=== PATIENT | female | born 1955 | race Caucasian/White ===

== ENCOUNTER 2020-10-07 14:41 | Outpatient (CLI) | payer OTHER, SELFPAY ==
--- NOTE | ~2020-10-07 | MM_ITS ---
EXAMINATION: MM screening [facility] BI w julio césar HISTORY: Screening TECHNIQUE: Craniocaudal and mediolateral oblique 3-D tomosynthesis images were obtained and synthetic 2-D images were generated. CAD analysis was submitted and interpreted. COMPARISON: Comparison to multiple prior studies sequentially, with oldest reviewed study dated 10/2010. BREAST PARENCHYMAL COMPOSITION: There are scattered areas of fibroglandular density. FINDINGS: There is no evidence of suspicious mass, calcification, or architectural distortion to sugg est malignancy in either breast. There has been no suspicious interval change. IMPRESSION: 1. No mammographic evidence of malignancy. 2. Recommend routine screening mammography in one year. BI-RADS Category 1: Negative Reviewed, dictated and finalized at location A.
--- NOTE | ~2020-10-07 | DEXA_ITS ---
Bone Density Report Name: Josselin Marsh Age: 65 Sex: Female Ethnicity: White Date of : 1955 Indication: postmenopausal; Referring Provider: Willi Bo Study: Bone densitometry was performed. Exam Date: October 08, 2020 Accession number: [id number] Bone Density: Region BMD T-score Z-score Classification AP Spine (L1-L4) 1.032 -0.1 1.5 Normal Femoral Neck (Left) 0.717 -1.2 0.3 Osteopenia Total Hip (Left) 0.928 -0.1 1.0 Normal Total Hip Bilateral Avg 0.941 0.0 1.1 Normal Femoral Neck (Right) 0.728 -1.1 0.4 Osteopenia Total Hip (Right) 0.953 0.1 1.2 Normal World Health Organization criteria for BMD impression classify patients as: Normal (T-score at or above -1.0), Osteopenia (T-score between -1.0 and -2.5), or Osteoporosis (T-score at or below -2.5). 10-year Fracture Risk(1): Major Osteoporotic Fracture 8.1% Hip Fracture 0.6% Reported Risk Factors: [place] (), Neck BMD=0.717, BMI=26.6 (1) FRAX(R) Version 3.08. Fracture probability calculated for an untreated patient. Fracture probability may be lower if the patient has received treatment. Clinical Information Provided by Patient: Has used the following medications: Vitamin D, Calcium Patient maximum height was 65 Menopause Age: 52 Drinks caffeinated beverages Onset of menses at age 14 Number of children 1 Impression: The patient has low bone mass, based on the Left Femoral Neck T-score. The patient has an estimated ten-year risk of hip fracture of 0.6% and an estimated ten-year risk of major fracture of 8.1%, based on the WHO FRAX algorithm. Discussion: BONE DENSITY IS LOW AT ONE OR MORE SKELETAL SITES. This patient's lowest T-score is low at one or more skeletal sites. It meets the World Health Organization's (WHO) criteria for ?low bone mass? (T-score between -1.0 and -2.5). The patient's 10-year risk of fracture as calculated by FRAX is less than the threshold where pharmacological therapy is recommended by the National Osteoporosis Foundation (NOF). However, all treatment decisions require clinical judgment and consideration of individual patient factors, including patient preferences, comorbidities, previous drug use, risk factors not captured in the FRAX model (e.g., frailty, falls, vitamin D deficiency, increased bone turnover, interval significant decline in bone density) and possible under or overestimation of fracture risk by FRAX. The patient should follow a healthful lifestyle (good nutrition with adequate calcium and vitamin D, and appropriate weight-bearing exercise). Follow-Up: Consider repeating this study in 2 to 3 years to reassess this patient's status, or sooner if there is some new clinical indication. Reported by: MARGARET on 10/08/2020 10:52:00 AM. Re
== END 2020-10-07 14:42 | disposition home or self-care (01) ==
LOC: ANHIMG 14:44
PROVIDERS: PCP Family Medicine; Visit Provider Physician Assistant
DX: Z12.31 Encounter for screening mammogram for malignant neoplasm of breast (principal); Z78.0 Asymptomatic menopausal state; M85.89 Other specified disorders of bone density and structure, multiple sites
CPT/HCPCS: 77063; 77067; 77080

== ENCOUNTER 2020-11-28 13:00 | Emergency (ER) | payer OTHER, SELFPAY ==
--- NOTE | ~2020-11-28 | XR_ITS ---
EXAMINATION: [id number] EXAM DATE: 11/28/2020 13:26 INDICATION: Left ribs pain. No known recent injury. TECHNIQUE: Frontal projection of the upper left ribs, frontal projection of the lower left ribs, obli que projection of the left ribs, frontal chest x-ray(s) for interpretation. There is no prior study for comparison. FINDINGS: There is acute closed posttraumatic left 9th rib fracture posteriorly. There is no soft ti ssue abnormality seen. No confluent consolidation, pneumothorax or pleural effusion suspected. Cardio mediastinal silhouette is normal. IMPRESSION: Left 9th rib fracture posteriorly. Reviewed, dictated and finalized at location A.
--- NOTE | 2020-11-28 13:04 | ED.BACK ---
HPI - Back Pain/Injury General Chief Complaint: Back Pain/Injury Stated Complaint: back pain radiating to abdomen Time Seen by Provider: 11/28/20 13:04 Source: patient and RN notes reviewed History of Present Illness HPI Narrative: Patient is 65-year-old female who presents the urgent care with complaints of upper left back pain that radiates to the abdomen. Patient states that she has surges of sharp pains intermittently. States that she does not have abdomen pain at this time but has had some radiation in the last 2 to 3 days when the pain started. Patient states that pain exacerbates with moving or bending. Patient has been taking meloxicam and [id number]-otlvcah pain medications without much improvement. Denies of any known trauma, injury or any recent strenuous activity. States that she does have some discomfort with deep breathing but denies of any shortness of breath. No other acute complaints. No acute distress noted. Patient read the plan of care. Some parts of this dictation were generated by voice recognition software and may contain typographical and/or grammatical inaccuracies. Related Data Home Medications Medication Instructions Recorded Confirmed calcium carbonate-vitamin D3 1 tablet PO DAILY 11/28/20 11/28/20 [Caltrate 600 plus D] vitamin B complex [B 1 tablet PO DAILY 11/28/20 11/28/20 Complex-Vitamin B12] Allergies Allergy/AdvReac Type Severity Reaction Status Date / Time No Known Allergies Allergy Verified 11/28/20 13:17 Review of Systems Review of Systems: CONSTITUTIONAL: Denies fever, chills, or sweats. EYES: Denies visual changes, redness, or discharge. ENT: Denies rhinorrhea, congestion, sore throat, or otalgia. CARDIOVASCULAR: Denies chest pain, palpitations, or edema. RESPIRATORY: Denies cough or dyspnea. GASTROINTESTINAL: Denies abdominal pain, nausea, vomiting, or diarrhea. GENITOURINARY: Denies dysuria or hematuria. SKIN: Denies rash or itching. MUSCULOSKELETAL: Reports of upper left back pain NEUROLOGIC: Denies headache, numbness, or weakness. All other systems reviewed are negative, except as documented in HPI. [facility] Past Medical History Medical History delivery delivered Endometriosis Surgical History Surgical History History of tonsillectomy Family History Family History Grandparent Diabetes mellitus Family history of cardiovascular disease Acute myocardial infarction Family history of coronary artery disease Mother Family history of blood dyscrasia Family history of malignant neoplasm Father Hypertension Social History Social History Smoking status: Former smoker (Quit 1983) Second hand tobacco smoke exposure: No Smoking end date: 03/22/83 Alcohol intake: current Drinks per week: 15 Substance use: never Substance use type: does not use Gender identity (if verbalized by the patient): Female Sexual Orientation (if Verbalized by the Patient): Straight or Heterosexual Spiritual care concerns: No Agree to blood products: Yes Comments At the time of my signature, I reviewed and agree with the nursing past medical, surgical, social, and family history. There is no relevant family history pertinent to the patient complaint. Exam Narrative: GENERAL: This is a well-nourished, well-developed patient, in no apparent distress. HEAD: normocephalic, atraumatic. EYES: PERRL. Sclera clear/white. Vision is grossly intact. EARS: External ears normal NOSE: External nose normal with no obvious nasal discharge, nares without redness, no rhinorrhea. THROAT: Mucous membranes moist NECK: Neck supple CARDIOVASCULAR: Regular rate and rhythm without murmurs, gallops, or rubs. RESPIRATORY: Clear to auscultation. Breath
[2020-11-28 13:06] VITALS: BP 168/78; PULSE 82; RESP 16; TEMP 36.8; O2SAT 100
== END 2020-11-28 13:47 | disposition home or self-care (01) ==
PROVIDERS: Emergency Provider Nurse Practitioner Family; PCP Physician Assistant
DX: S22.32XA Fracture of one rib, left side, initial encounter for closed fracture (principal); X58.XXXA Exposure to other specified factors, initial encounter; Z87.891 Personal history of nicotine dependence; N80.9 Endometriosis, unspecified
CPT/HCPCS: 71101; 99213; G0463

== ENCOUNTER 2021-03-02 10:38 | Emergency (ER) | payer OTHER, SELFPAY ==
--- NOTE | 2021-03-02 10:48 | ED.URI ---
HPI - URI/Sore Throat General Chief Complaint: Upper Respiratory Infection Stated Complaint: ears clogged,escobar,cough Time Seen by Provider: 03/02/21 10:48 Source: patient Mode of arrival: ambulatory Limitations: no limitations History of Present Illness HPI Narrative: Josselin Marsh is a 66 yo female with hypothyroid, GERD, depression, who comes with stuffiness and ear pressure eye pressure since ; she is afebrile. No nausea vomiting or diarrhea. Related Data Home Medications Medication Instructions Recorded Confirmed calcium carbonate-vitamin D3 1 tablet PO DAILY 11/28/20 11/28/20 [Caltrate 600 plus D] vitamin B complex [B 1 tablet PO DAILY 11/28/20 11/28/20 Complex-Vitamin B12] Allergies Allergy/AdvReac Type Severity Reaction Status Date / Time No Known Allergies Allergy Verified 11/28/20 13:17 Review of Systems Review of Systems: CONSTITUTIONAL: Denies fever, chills, sweats. EYES: Denies visual changes, redness, discharge. ENT: Has rhinorrhea, has congestion, sore throat, otalgia. CARDIOVASCULAR: Denies chest pain, palpitations, edema. RESPIRATORY: Denies dyspnea, wheezing, has deep cough GASTROINTESTINAL: Denies abdominal pain, nausea, vomiting, diarrhea. GENITOURINARY: Denies dysuria, hematuria, abnormal discharge SKIN: Denies rash or itching. NEUROLOGIC: Denies numbness, or focal weakness. PSYCHIATRIC: Denies anxiety or depression. [facility] Past Medical History Medical History delivery delivered Endometriosis Surgical History Surgical History History of tonsillectomy Family History Family History Grandparent Diabetes mellitus Family history of cardiovascular disease Acute myocardial infarction Family history of coronary artery disease Mother Family history of blood dyscrasia Family history of malignant neoplasm Father Hypertension Social History Social History Smoking status: Former smoker (Quit 1983) Second hand tobacco smoke exposure: No Smoking end date: 03/22/83 Alcohol intake: current Drinks per week: 15 Substance use: never Substance use type: does not use Gender identity (if verbalized by the patient): Female Sexual Orientation (if Verbalized by the Patient): Straight or Heterosexual Spiritual care concerns: No Agree to blood products: Yes Comments At time of signature, I agree with nursing past medical, surgical, social and family history. There is no relevant family history pertinent to the presenting complaint. Exam Narrative: GENERAL: This is a well-nourished, well-developed patient, in mild distress. HEAD: normocephalic, atraumatic. EYES: P Sclera clear/white. Vision is grossly intact. EARS: External ears normal, auditory canals clear and without drainage, TMs normal without perforation. Hearing grossly intact. NOSE: External nose normal with nasal discharge, nares with redness, has rhinorrhea. THROAT: Mucous membranes moist, posterior pharynx mild erythema NECK: Neck supple, non-tender CARDIOVASCULAR: Regular rate and rhythm without murmurs, gallops, or rubs. RESPIRATORY: Clear to auscultation. Breath sounds equal bilaterally. No wheezes, rales, or rhonchi. Raspy cough on exam GASTROINTESTINAL: Abdomen soft, non-tender, SKIN: warm, intact with no suspicious lesions or rash, good texture and turgor. NEURO: awake, alert, and oriented to person, place and time. There were no obvious focal neurologic abnormalities. Steady gait EXTREMITIES: Normal range of motion. BACK: Nontender without deformity Course Course Emergency Course: Patient here with sinus congestion ears feeling stuffy and cough particularly that worsens at night x3 days Started on prednisone, Tessalon Perles, codeine cough syrup at night Vi
[2021-03-02 10:52] VITALS: BP 139/82; PULSE 90; RESP 16; TEMP 36.8; O2SAT 98
== END 2021-03-02 11:16 | disposition home or self-care (01) ==
PROVIDERS: Emergency Provider Nurse Practitioner; PCP Family Medicine
DX: R05.9 Cough, unspecified (principal); J06.9 Acute upper respiratory infection, unspecified; Z87.891 Personal history of nicotine dependence; N80.9 Endometriosis, unspecified
CPT/HCPCS: 99213; G0463

== ENCOUNTER 2021-03-13 10:18 | Emergency (ER) | payer OTHER, SELFPAY ==
[2021-03-13 10:41] VITALS: BP 131/80; PULSE 85; RESP 16; TEMP 36.4; O2SAT 100
--- NOTE | 2021-03-13 11:22 | ED.URI ---
HPI - URI/Sore Throat General Chief Complaint: Upper Respiratory Infection Stated Complaint: Congestion,Cough Time Seen by Provider: 03/13/21 11:05 Source: patient, RN notes reviewed and old records reviewed Mode of arrival: ambulatory Limitations: no limitations History of Present Illness HPI Narrative: 66-year-old female who presents to [facility] with complaints of cough and congestion,yellow sinus drainage since the 9th of this Month. She was seen on the and was given prednisone. cough syrup. and Tessalon Perles with no improvement in her condition. Patient states low-grade temperatures but denies any chills or sweats and denies any body aches has had Covid and flu vaccinations MD elicited complaint: cough, rhinorrhea and nasal congestion Related Data Home Medications Medication Instructions Recorded Confirmed calcium carbonate-vitamin D3 1 tablet PO DAILY 11/28/20 03/13/21 [Caltrate 600 plus D] vitamin B complex [B 1 tablet PO DAILY 11/28/20 03/13/21 Complex-Vitamin B12] Allergies Allergy/AdvReac Type Severity Reaction Status Date / Time No Known Allergies Allergy Verified 03/13/21 10:57 Review of Systems Review of Systems: CONSTITUTIONAL: Low grade fever, nochills, or sweats. EYES: Denies visual changes, redness, or discharge. ENT: Positive yellow rhinorrhea, congestion, sinus pressure,sore throat, or otalgia. CARDIOVASCULAR: Denies chest pain, palpitations, or edema. RESPIRATORY: Positive cough no dyspnea. GASTROINTESTINAL: Denies abdominal pain, nausea, vomiting, or diarrhea. GENITOURINARY: Denies dysuria or hematuria. SKIN: Denies rash or itching. MUSCULOSKELETAL: Denies back pain, joint pain, no body aches NEUROLOGIC: Positive headache, no numbness, or weakness. PSYCHIATRIC: Positive history of anxiety or depression. All systems reviewed & are unremarkable except as noted in HPI and below [facility] Past Medical History Medical History (Updated 03/16/21 @ 19:48 by Vielka Hermosillo NP) delivery delivered Endometriosis GERD (gastroesophageal reflux disease) History of sinus problem Hypothyroidism (acquired) Surgical History Surgical History (Updated 03/16/21 @ 19:49 by Vielka Hermosillo NP) H/O cardiac radiofrequency ablation History of tonsillectomy Family History Family History Grandparent Diabetes mellitus Family history of cardiovascular disease Acute myocardial infarction Family history of coronary artery disease Mother Family history of blood dyscrasia Family history of malignant neoplasm Father Hypertension Social History Social History Smoking status: Former smoker (Quit 1983) Second hand tobacco smoke exposure: No Smoking end date: 03/22/83 Alcohol intake: current Drinks per week: 15 Substance use: never Substance use type: does not use Gender identity (if verbalized by the patient): Female Sexual Orientation (if Verbalized by the Patient): Straight or Heterosexual Spiritual care concerns: No Agree to blood products: Yes Comments At time of signature, agree with nursing past medical, surgical, social and family history. There is no relevant family history pertinent to the presenting complaint Exam Narrative: GENERAL: Well-appearing, well-nourished, and in no acute distress. HEAD: Normocephalic, atraumatic. EYES: PERRLA and EOMI. ENT: Nares red with yellow rhinorrhea no epistaxis. Mucous membranes moist.TM's normal with good light reflex, throat red with no lesions or exudates, post nasal drainage noted. NECK: Supple.no lymphadenopathy CHEST: Clear to auscultation. No respiratory distress.cough which is productive, SAO2 100% on room air HEART: Regular rate and rhythm. No murmur heard. Normal peripheral pulses. ABDOMEN: Soft, nontender, nondistended, normal active bowel sounds. EXTREMITIES: Normal range of motion. No edema
== END 2021-03-13 11:43 | disposition home or self-care (01) ==
PROVIDERS: Emergency Provider Registered Nurse; PCP Family Medicine
DX: J01.90 Acute sinusitis, unspecified (principal); B96.89 Other specified bacterial agents as the cause of diseases classified elsewhere; E03.9 Hypothyroidism, unspecified; Z87.891 Personal history of nicotine dependence; Z20.822 Contact with and (suspected) exposure to COVID-19
CPT/HCPCS: 87426; 99213; C9803; G0463

== ENCOUNTER 2021-03-24 11:27 | Outpatient (CLI) | payer OTHER, SELFPAY ==
--- NOTE | ~2021-03-24 | XR_ITS ---
XR ankle RT min 3V DATE: 03/24/2021 11:46 INDICATION: Injury, pain TECHNIQUE: 4 views COMPARISON: None FINDINGS: There is a minimally displaced transverse linear fracture near the tip of the lateral malle olus with overlying soft tissue swelling. The medial malleolus and posterior malleolus are intact. The ankle mortise appears maintained. Mild plantar calcaneal enthesopathy. IMPRESSION: Minimally displaced transverse recent fracture of the lateral malleolus, with overlying s oft tissue swelling Reviewed, dictated and finalized at location A. [employer] IMPRESSION: Minimally displaced transverse recent fracture of the lateral malle olus, with overlying soft tissue swelling
== END 2021-03-24 11:28 | disposition home or self-care (01) ==
LOC: ANHIMG 11:33
PROVIDERS: PCP Family Medicine; Visit Provider Physician Assistant
DX: S82.61XA Displaced fracture of lateral malleolus of right fibula, initial encounter for closed fracture (principal); M79.89 Other specified soft tissue disorders
CPT/HCPCS: 73610

== ENCOUNTER 2022-01-26 09:33 | Outpatient (CLI) | payer OTHER, SELFPAY ==
--- NOTE | ~2022-01-26 | MM_ITS ---
EXAMINATION: MM screening [facility] BI w julio césar HISTORY: Screening mammogram TECHNIQUE: Craniocaudal and mediolateral oblique 3-D tomosynthesis images were obtained and synthetic 2-D images were generated. CAD analysis was submitted and interpreted. COMPARISON: 10/07/2020, 07/04/2018 bilateral screening mammogram examinations BREAST PARENCHYMAL COMPOSITION: There are scattered areas of fibroglandular density. FINDINGS: There are arterial calcifications. There is no evidence of suspicious mass, calcification, or architectural distortion to suggest malignancy in either breast. There has been no suspicious inte rval change. IMPRESSION: 1. No mammographic evidence of malignancy. 2. Recommend routine screening mammography in one year. BI-RADS Category 1: Negative Reviewed, dictated and finalized at location A. [employer]
== END 2022-01-26 09:34 | disposition home or self-care (01) ==
LOC: ANHIMG 09:35
PROVIDERS: PCP Family Medicine; Visit Provider Physician Assistant Medical
DX: Z12.31 Encounter for screening mammogram for malignant neoplasm of breast (principal)
CPT/HCPCS: 77063; 77067

== ENCOUNTER 2022-12-04 11:03 | Emergency (ER) | payer MEDICARE, SELFPAY ==
[2022-12-04 11:16] VITALS: BP 134/80; PULSE 88; RESP 16; TEMP 36.8; O2SAT 96
--- NOTE | 2022-12-04 11:24 | ED.URI ---
HPI - URI/Sore Throat General Chief Complaint: Upper Respiratory Infection Stated Complaint: COUGH/SINUS CONGESTION Time Seen by Provider: 12/04/22 11:25 Source: patient, RN notes reviewed and old records reviewed Mode of arrival: ambulatory Limitations: no limitations History of Present Illness HPI Narrative: 67-year-old female who presents to [facility] with complaints of cough which is productive at times that is worse at night and sinus congestion, drainage facial pressure and some frontal headache discomfort of at least 1 week duration. Patient reports that she has been taking some severe cold and flu medication and some codeine cough syrup she had left over for her symptoms. Patient reports that she has seasonal sinus problems and history of past bronchitis. Patient reports that she has not had any known fevers but has noted some hot flashes at times. Patient denies any body aches, nausea or vomiting or diarrhea. MD elicited complaint: cough, rhinorrhea, nasal congestion and sinus pain Pertinent past history: sinusitis, seasonal allergies and other (bronchitis) Onset (ago): week(s) (1) Severity: moderate Treatments prior to arrival: cold medicine and other (codeine cough syrup) Related Data Home Medications Medication Instructions Recorded Confirmed calcium carbonate 600 mg-vitamin 1 tablet PO DAILY 11/28/20 12/04/22 D3 20 mcg (800 unit) chewable tablet (Caltrate 600 plus D) vitamin B complex (B 1 tablet PO DAILY 11/28/20 12/04/22 Complex-Vitamin B12 tablet) Bifidobacterium infantis 10.5 mg mg PO DAILY 03/25/21 09/30/22 (10 million cell) chewable tablet (Align) Allergies Allergy/AdvReac Type Severity Reaction Status Date / Time No Known Allergies Allergy Verified 12/04/22 11:11 Review of Systems Review of Systems: CONSTITUTIONAL: Reports malaise,no chills,some hot flashes, no known fevers. EYES: Denies visual changes, redness, or discharge. ENT: Reports rhinorrhea, congestion, sinus pain,no otalgia and no sore throat. CARDIOVASCULAR: Denies chest pain, palpitations, or edema. RESPIRATORY: Reports productive cough.? Denies dyspnea.Reports cough worse at night GASTROINTESTINAL: Denies abdominal pain, nausea, vomiting, diarrhea SKIN: Denies rash or itching. MUSCULOSKELETAL: Denies myalgia. NEUROLOGIC: Frontal headache. All systems reviewed & are unremarkable except as noted in HPI and below PMFSH Past Medical History Medical History (Updated 12/06/22 @ 19:56 by Vielka Hermosillo NP) Arthritis delivery delivered Claustrophobia Depression Endometriosis Fracture of distal end of right fibula GERD (gastroesophageal reflux disease) History of sinus problem Hypothyroidism Hypothyroidism (acquired) Nausea & vomiting Wears glasses Surgical History Surgical History (Updated 12/06/22 @ 19:56 by Vielka Hermosillo NP) H/O cardiac radiofrequency ablation H/O: section History of tonsillectomy Family History Family History Grandparent Diabetes mellitus Family history of cardiovascular disease Acute myocardial infarction Family history of coronary artery disease Mother Family history of blood dyscrasia Family history of malignant neoplasm Father Hypertension Carcinoma of colon Esophagus cancer Other Arthritis Kidney disorder Myelodysplastic syndrome Social History Social History Smoking packs per day: 2 Smoking cigarettes per day: 40.0 Years smoked: 6 Smoking pack-years: 12.00 Smoking status: Former smoker Second hand tobacco smoke exposure: No Smoking end date: 03/22/83 Alcohol intake: current Drinks per week: 15 Substance use: never Substance use type: does not use Lack of Transportation: No Lack of Food: Never True Current Housing: I Have Housing Concerned About Future Housing:
== END 2022-12-04 12:09 | disposition home or self-care (01) ==
PROVIDERS: Emergency Provider Registered Nurse; PCP Physician Assistant Medical
DX: J01.40 Acute pansinusitis, unspecified (principal); R05.1 Acute cough; E03.9 Hypothyroidism, unspecified; Z87.891 Personal history of nicotine dependence
CPT/HCPCS: 99213; G0463

== ENCOUNTER 2023-07-12 10:11 | Outpatient (CLI) | payer MEDICARE, SELFPAY ==
--- NOTE | ~2023-07-12 | MM_ITS ---
EXAMINATION: MM screening [facility] BI w julio césar HISTORY: Screening mammogram TECHNIQUE: Craniocaudal and mediolateral oblique 3-D tomosynthesis images were obtained and synthetic 2-D images were generated. CAD analysis was submitted and interpreted. COMPARISON: 01/26/2022, 10/07/2020 bilateral screening mammogram examinations BREAST PARENCHYMAL COMPOSITION: The breasts are heterogeneously dense, which may obscure small masses . FINDINGS: There is no evidence of suspicious mass, calcification, or architectural distortion to sugg est malignancy in either breast. There has been no suspicious interval change. IMPRESSION: 1. No mammographic evidence of malignancy. 2. Recommend routine screening mammography in one year. BI-RADS Category 1: Negative Reviewed, dictated and finalized at location A.
== END 2023-07-12 10:12 | disposition home or self-care (01) ==
LOC: ANHIMG 10:13
PROVIDERS: PCP Physician Assistant Medical; Visit Provider Physician Assistant Medical
DX: Z12.31 Encounter for screening mammogram for malignant neoplasm of breast (principal)
CPT/HCPCS: 77063; 77067

== ENCOUNTER 2023-07-25 13:48 | Emergency (ER) | payer MEDICARE, SELFPAY ==
--- NOTE | 2023-07-25 13:50 | ED.SKABFB ---
HPI - Skin/Abscess/Foreign Bdy General Chief complaint: Skin/Abscess/Foreign Body Stated complaint: RASH Time Seen by Provider: 07/25/23 14:03 Source: patient and RN notes reviewed Mode of arrival: ambulatory Limitations: no limitations History of Present Illness HPI narrative: 68-year-old female concern for 2 week history of rash. She reports new spots keep popping up, it is generalized. Reports that is flaky and sometimes itchy. She denies warm, swollen tongue, trouble breathing. Denies history of new household products, personal care products, medicine MD complaint: rash Related Data Home Medications Medication Instructions Recorded Confirmed calcium carbonate 600 mg-vitamin 1 tablet PO DAILY 11/28/20 07/25/23 D3 20 mcg (800 unit) chewable tablet (Caltrate 600 plus D) vitamin B complex (B 1 tablet PO DAILY 11/28/20 07/25/23 Complex-Vitamin B12 tablet) Bifidobacterium infantis 10.5 mg 10.5 mg PO DAILY 03/25/21 07/25/23 (10 million cell) chewable tablet (Align) Allergies Allergy/AdvReac Type Severity Reaction Status Date / Time No Known Allergies Allergy Verified 07/25/23 14:07 Review of Systems Review of Systems: CONSTITUTIONAL: Denies malaise, chills, sweats, or fever. EYES: Denies redness, or discharge. ENT: Denies rhinorrhea, congestion, swollen lips, swollen tongue CARDIOVASCULAR: Denies chest pain, palpitations, or edema. RESPIRATORY: Denies cough or dyspnea. GASTROINTESTINAL: Denies abdominal pain, nausea, vomiting SKIN: Reports rash MUSCULOSKELETAL: Denies joint pain or myalgia. NEUROLOGIC: Denies headache. All systems reviewed & are unremarkable except as noted in HPI and below PMFSH Past Medical History Medical History (Updated 07/25/23 @ 14:10 by Jayleen Giraldo NP) Arthritis delivery delivered Claustrophobia Depression Effusion of knee joint Endometriosis Fracture of distal end of right fibula GERD (gastroesophageal reflux disease) History of sinus problem Hypothyroidism Hypothyroidism (acquired) Left knee DJD Nausea & vomiting Wears glasses Surgical History Surgical History H/O cardiac radiofrequency ablation H/O: section History of tonsillectomy Family History Family History Grandparent Diabetes mellitus Family history of cardiovascular disease Acute myocardial infarction Family history of coronary artery disease Mother Family history of blood dyscrasia Family history of malignant neoplasm Father Hypertension Carcinoma of colon Esophagus cancer Other Arthritis Kidney disorder Myelodysplastic syndrome Social History Social History Smoking packs per day: 2 Smoking cigarettes per day: 40.0 Years smoked: 6 Smoking pack-years: 12.00 Smoking status: Former smoker Second hand tobacco smoke exposure: No Smoking end date: 03/22/83 Alcohol intake: current Drinks per week: 15 Substance use: never Substance use type: does not use Lack of Transportation: No Lack of Food: Never True Current Housing: I Have Housing Concerned About Future Housing: No Difficulty Paying Gas/Electric Bills: No Difficulty Paying for Meds: No Currently Unemployed: No Education: Associate Degree Difficulty w/ Childcare or Family Care: No Living arrangements: with family Occupation/Education: retired Gender identity (if verbalized by the patient): Female Sexual Orientation (if Verbalized by the Patient): Straight or Heterosexual Spiritual care concerns: No Agree to blood products: Yes Comments At time of signature, agree with nursing past medical, surgical, social and family history. There is no relevant family history pertinent to the presenting complaint Exam Narrative: GENERAL: Well-appearing, well-nourished, and in no acute distr
[2023-07-25 14:10] VITALS: BP 151/80; PULSE 81; RESP 16; TEMP 36.9; O2SAT 99
== END 2023-07-25 14:18 | disposition home or self-care (01) ==
PROVIDERS: Emergency Provider Nurse Practitioner; PCP Physician Assistant Medical
DX: R21 Rash and other nonspecific skin eruption (principal); Z87.891 Personal history of nicotine dependence; M19.90 Unspecified osteoarthritis, unspecified site; N80.9 Endometriosis, unspecified; K21.9 Gastro-esophageal reflux disease without esophagitis; E03.9 Hypothyroidism, unspecified; M17.12 Unilateral primary osteoarthritis, left knee
CPT/HCPCS: 99213; G0463

== ENCOUNTER 2024-10-27 13:23 | Outpatient (CLI) | payer MEDICARE, SELFPAY ==
--- NOTE | ~2024-10-27 | DEXA_ITS ---
Bone Density Report Name: SARINA WILSON Age: 69 Sex: Female Ethnicity: White Date of : 1955 Indication: postmenopausal; screening for osteoporosis; height loss; Referring Provider: PEDRO PABLO NUNES Study: Bone densitometry was performed. Exam Date: October 27, 2024 Accession number: [id number] Bone Density: Region BMD T-score Z-score Classification AP Spine(L1-L4) 0.997 -0.5 1.5 Normal Femoral Neck (Left) 0.692 -1.4 0.2 Osteopenia Total Hip (Left) 0.932 -0.1 1.3 Normal Femoral Neck (Right) 0.712 -1.2 0.4 Osteopenia Total Hip (Right) 0.919 -0.2 1.2 Normal Total Hip Mean 0.925 -0.2 1.3 Normal World Health Organization criteria for BMD impression classify patients as: Normal (T-score at or above -1.0), Osteopenia (T-score between -1.0 and -2.5), or Osteoporosis (T-score at or below -2.5). 10-year Fracture Risk(1): Major Osteoporotic Fracture 9.3% Hip Fracture 1.1% Reported Risk Factors: [place] (), Neck BMD=0.692, BMI=26.6 (1) FRAX(R) Version 3.08. Fracture probability calculated for an untreated patient. Fracture probability may be lower if the patient has received treatment. Previous Exams: Region Exam Age BMD T-score BMD Change BMD Change Date g/cm2 vs Baseline vs Previous AP Spine (L1-L4) 10/27/2024 69 0.997 -0.5 -0.035 (-3.4%) -0.035 (-3.4%) 10/08/2020 65 1.032 -0.1 Total Hip(Left) 10/27/2024 69 0.932 -0.1 0.004 (0.4%)# 0.004 (0.4%)# 10/08/2020 65 0.928 -0.1 Total Hip(Right) 10/27/2024 69 0.919 -0.2 -0.034 (-3.6%) -0.034 (-3.6%) 10/08/2020 65 0.953 0.1 *Denotes significance at 95% confidence level, LSC for AP Spine = 0.022 g/cm2, LSC for Total Hip = 0.027 g/cm2 # Denotes dissimilar scan types or analysis methods Clinical Information Provided by Patient: Has used the following medications: Calcium Patient maximum height was 65 Menopause Age: 52 Drinks caffeinated beverages Onset of menses at age 14 Number of children 1 Impression: The patient has low bone mass, based on the Left Femoral Neck T-score. The patient has an estimated ten-year risk of hip fracture of 1.1% and an estimated ten-year risk of major fracture of 9.3%, based on the WHO FRAX algorithm. No significant bone loss was observed. Discussion: BONE DENSITY IS LOW AT ONE OR MORE SKELETAL SITES. This patient's lowest T-score is low at one or more skeletal sites. It meets the World Health Organization's (WHO) criteria for ?low bone mass? (T-score between -1.0 and -2.5). The patient's 10-year risk of fracture as calculated by FRAX is less than the threshold where pharmacological therapy is recommended by the National Osteoporosis Foundation (NOF). However, all treatment decisions require clinical judgment and consideration of individual patient factors, including patient preferences, comorbidities, previous drug use, risk factors not captured in the FRAX model (e.g., frailty, falls, vitamin D deficiency, increased bone turnover, interval significant decline in bone density) and possible under or overestimation of fracture risk by FRAX. The patient should follow a healthful lifestyle (good nutrition with adequate calcium and vitamin D, and appropriate weight-bearing exercise). Follow-Up: Consider repeating this study in 2 to 3 years to reassess this patient's status, or sooner if there is some new clinical indication. Reported by: MARGARET on 10/27/2024 2:07:00 PM. Reviewed, dictated and finalized at location A.
--- NOTE | ~2024-10-27 | MM_ITS ---
EXAMINATION: MM screening wilman BI w julio césar HISTORY: Screening TECHNIQUE: Craniocaudal and mediolateral oblique 3-D tomosynthesis images were obtained and synthetic 2-D images were generated. CAD analysis was submitted and interpreted. COMPARISON: Comparison to multiple prior studies sequentially, with oldest reviewed study dated 07/11 through 11/27/2010. BREAST PARENCHYMAL COMPOSITION: The breasts are heterogeneously dense, which may obscure small masses . FINDINGS: There is no evidence of suspicious mass, calcification, or architectural distortion to sug gest malignancy in either breast. IMPRESSION: 1. No mammographic evidence of malignancy. 2. Recommend routine screening mammography in one year. BI-RADS Category 1: Negative Reviewed, dictated and finalized at location B.
--- OUTSIDE RECORDS SUMMARY | 2024-10-27 13:30 | XMS_ITS | Clinical Summary ---
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
--- OUTSIDE RECORDS SUMMARY | 2024-10-27 13:30 | XMS_ITS | Encounter Summary ---
Author Organization [facility] Address 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
== END 2024-10-27 13:24 | disposition home or self-care (01) ==
LOC: ANHIMG 13:28
PROVIDERS: PCP Family Medicine; Visit Provider Student in an Organized Health Care Education/Training Program
DX: Z12.31 Encounter for screening mammogram for malignant neoplasm of breast (principal); Z78.0 Asymptomatic menopausal state
CPT/HCPCS: 77063; 77067; 77080

== ENCOUNTER 2024-10-30 09:38 | Emergency (ER) | payer MEDICARE, SELFPAY ==
[2024-10-30 09:55] VITALS: BP 142/70; PULSE 69; RESP 16; TEMP 36.4; O2SAT 99
--- NOTE | 2024-10-30 10:08 | ED.SKABFB ---
HPI - Skin/Abscess/Foreign Bdy General Chief complaint: Skin/Abscess/Foreign Body Stated complaint: skin irritation Time Seen by Provider: 10/30/24 10:00 Source: patient Mode of arrival: ambulatory Limitations: no limitations History of Present Illness HPI narrative: Josselin is a 69-year-old female patient presenting to the clinic today with complaints of a skin sore x 2 weeks. She reports she was working on the yd and thinks she got scratched by a blackberry herrera. Has a painful skin sore to the left lateral abdomen. Denies any fevers, chills, body aches. Has applied mupirocin, poison kristian cream, and a steroid cream to the affected area. States that it does not seem to be improving. Related Data Home Medications ?Medication ?Instructions ?Recorded ?Confirmed ?Last Taken ?Type calcium 600 mg (as carbonate)-vit 1 tablet PO DAILY 11/28/20 10/30/24 Unknown History D3 20 mcg (800 unit) chewable tablet (Caltrate plus D) vitamin B complex (B 1 tablet PO DAILY 11/28/20 10/30/24 Unknown History Complex-Vitamin B12 tablet) Bifidobacterium infantis 10.5 mg 10.5 mg PO DAILY 03/25/21 10/30/24 Unknown History (10 million cell) chewable tablet (Align (B.infantis)) Allergies Allergy/AdvReac Type Severity Reaction Status Date / Time cephalexin Allergy Mild Rash Uncoded 10/30/24 10:13 Review of Systems Review of Systems: Pertinent positives per HPI. Patient denies any fever, chills, headache, visual changes, dizziness, cough, runny nose, sore throat, shortness of breath, chest pain, palpitations, nausea, vomiting, diarrhea, constipation, abdominal pain, or any urinary issues. [facility] Past Medical History Medical History Effusion of knee joint Left knee DJD Depression Arthritis Hypothyroidism Nausea & vomiting Wears glasses Claustrophobia Fracture of distal end of right fibula GERD (gastroesophageal reflux disease) History of sinus problem Endometriosis delivery delivered Hypothyroidism (acquired) Surgical History Surgical History H/O: section H/O cardiac radiofrequency ablation History of tonsillectomy Family History Family History Grandparent Diabetes mellitus Family history of cardiovascular disease Acute myocardial infarction Family history of coronary artery disease Mother Family history of blood dyscrasia Family history of malignant neoplasm Father Hypertension Carcinoma of colon Esophagus cancer Other Arthritis Kidney disorder Myelodysplastic syndrome Social History Social History Smoking packs per day: 2 Smoking cigarettes per day: 40.0 Years smoked: 6 Smoking pack-years: 12.00 Smoking status: Former smoker (quit 40 years ago) Second hand tobacco smoke exposure: No Smoking end date: 03/22/83 Alcohol intake: current Drinks per week: 15 Substance use: never Substance use type: does not use Lack of Transportation: No Lack of Food: Never True Current Housing: I Have Housing Concerned About Future Housing: No Difficulty Paying Gas/Electric Bills: No Difficulty Paying for Meds: No Currently Unemployed: No Education: Associate Degree Difficulty w/ Childcare or Family Care: No Living arrangements: with family Occupation/Education: retired Gender identity (if verbalized by the patient): Female Sexual Orientation (if Verbalized by the Patient): Straight or Heterosexual Spiritual care concerns: No Agree to blood products: Yes Comments At the time of my signature, I reviewed and agree with the nursing past medical, surgical, social, and family history. There is no relevant family history pertinent to the patient complaint. Exam Narrative: General: Well-developed, well nourished, in no apparent distress Head: Normocephalic, atraumatic. Cardio: Regular rate and rhythm, s1 and s2 normal, no murmur appreciated. Resp: Clear to auscultation bilaterally, no rhonchi, rales, wheezing or rubs. Integumentary: [place], warm, and dry, red round open sore jayla sized to the top layer of the skin with yellow crusting. No induration, mildly tender to palpation Course Course Emergency Course: Portions of this record may have been created with voice recognition software. Level of Care: Express Care Visit Vital Signs Vital signs: Vital Signs Temperature 36.4 C 10/30/24 09:55 Pulse Rate 69 10/30/24 09:55 Respiratory Rate 16 10/30/24 09:55 Blood Pressure 142/70 H 10/30/24 09:55 Pulse Oximetry 99 10/30/24 09:55 Oxygen Delivery Room Air 10/30/24 09:55 Temperature 36.4 C 10/30/24 09:55 Pulse Rate 69 10/30/24 09:55 Respiratory Rate 16 10/30/24 09:55 Blood Pressure 142/70 H 10/30/24 09:55 Pulse Oximetry 99 10/30/24 09:55 Oxygen Delivery Room Air 10/30/24 09:55 Vital signs reviewed MDM - Skin/Abscess/Foreign Bdy MDM Narrative Medical decision making narrative: At the time of visit patient is resting comfortably on the exam table. Patient appears to be nontoxic. complaints of a skin sore x 2 weeks. She reports she was working on the yd and thinks she got scratched by a blackberry herrera. Has a painful skin sore to the left lateral abdomen. Denies any fevers, chills, body aches. Has applied mupirocin, poison kristian cream, and a steroid cream to the affected area. States that it does not seem to be improving. Red round nickel sized open sore to the top layer of the skin with yellow crusting. No induration, mildly tender to palpation Plan: I suspect patient has a skin infection. Recommend stopping other creams and just applying mupirocin cream to the wound twice daily x7 days. Supportive measures were discussed with the patient and they voiced understanding discharge instructions and agrees to treatment plan. Return precautions reviewed Differential Diagnosis Differential diagnosis: Likely abscess of skin or subcutaneous tissue, viral exanthem, dermatophytosis, urticaria, herpes zoster, allergic reaction to drug, cellulitis, eczema, insect bites, impetigo and contact dermatitis Discharge Plan Discharge Clinical Impression: Bacterial skin infection Patient Disposition: Home Condition: Stable Instructions: Antibiotic Form Additional Instructions: Apply mupirocin cream twice daily x7 days May take Tylenol/Motrin as needed for pain or fever as directed per bottle Keep area clean and dry Wash daily with soap and water May apply Band-Aid covering if draining Follow-up with your doctor in 5-7 days if symptoms persist Go to the emergency room if symptoms worsen-fever not controlled by Tylenol or Motrin, increase in pain, increase in swelling, increase in redness, purulent discharge, or streaking Patient Language: Mongolian Prescriptions: No Action vitamin B complex [B Complex-Vitamin B12] Tablet 1 tablet PO DAILY Caltrate 600 plus D 600 mg (1,500 mg)-800 unit Tablet,Chewable 1 tablet PO DAILY hydrocortisone 1 % cream with perineal applicator 1 applic RECTAL DAILY Qty: 28.4 5RF Align (B.infantis) 10.5 mg (10 million cell) tablet,chewable 10.5 mg PO DAILY Patient Comments: on provided med list lansoprazole 30 mg capsule,delayed release(DR/EC) See Rx Instructions .ROUTE .COMPLEX Qty: 90 1RF Dose Instruction: TAKE 1 CAPSULE DAILY NEEDED FOR GASTROESOPHAGEALREFLUX DISEASE Rx Instructions: TAKE 1 CAPSULE DAILY NEEDED FOR GASTROESOPHAGEALREFLUX DISEASE sertraline 50 mg tablet 50 mg PO DAILY Qty: 90 1RF hydrocortisone acetate 25 mg suppository 25 mg RECTAL DAILY Qty: 12 0RF levothyroxine [Synthroid] 125 mcg tablet 125 mcg PO DAILY Qty: 90 1RF Rx Instructions: NO DOSE ON SUNDAYS Follow-up/Referrals: Medina Barlow MD [Primary Care Provider] - Time of Disposition: 10:19 Quality NIHSS Nursing Documentation ED NIHSS nursing documentation: reviewed/agree
== END 2024-10-30 10:22 | disposition home or self-care (01) ==
PROVIDERS: Emergency Provider Nurse Practitioner Family; PCP Family Medicine
DX: L08.9 Local infection of the skin and subcutaneous tissue, unspecified (principal); B96.89 Other specified bacterial agents as the cause of diseases classified elsewhere; E03.9 Hypothyroidism, unspecified; K21.9 Gastro-esophageal reflux disease without esophagitis; N80.9 Endometriosis, unspecified; M17.12 Unilateral primary osteoarthritis, left knee; Z87.891 Personal history of nicotine dependence
CPT/HCPCS: 99211; G0463

== ENCOUNTER 2025-02-21 09:56 | Outpatient (CLI) | payer MEDICARE, SELFPAY ==
[2025-02-21 10:21] LABS: Hematocrit 38.3 % (37.0-47.0); Hemoglobin 12.9 g/dL (12.0-15.0); Immature Granulocyte Percent A 0.3 % (0-0.5); Lymphocytes Absolute Auto 1.01 K/mm3 (0.9-3.2); Mean Corpuscular HGB Conc 33.7 g/dl (32-36); Mean Corpuscular Hemoglobin 32.9 pg (26-34); Mean Corpuscular Volume 97.7 fl (80-100); Nucleated Red Blood Cells Absolute Auto 0.000 K/mm3 (0.0-0.012); Nucleated Red Blood Cells Perc 0.0 % (0.0-0.2); Platelet Count Result 199 k/mm3 (150-375); Red Blood Count 3.92 M/mm3 (4.2-5.4); White Blood Count 2.9 K/mm3 (4.5-10.0)
--- OUTSIDE RECORDS SUMMARY | 2025-02-21 11:02 | XMS_ITS | Encounter Summary ---
Author Organization [facility] Address 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
--- OUTSIDE RECORDS SUMMARY | 2025-02-21 11:02 | XMS_ITS | Clinical Summary ---
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
== END 2025-02-21 09:57 | disposition home or self-care (01) ==
LOC: ANHLAB 09:57
DX: D72.9 Disorder of white blood cells, unspecified (principal); I10 Essential (primary) hypertension
CPT/HCPCS: 36415; 85025